=== PATIENT | male | born 1940 | race Caucasian/White ===

== ENCOUNTER → 2023-04-20 02:53 | Outpatient (CLI) | payer MEDICARE, SELFPAY ==
--- NOTE | 2023-04-20 09:20 | DI.MRI_ITS ---
Exam(s) MR LUMBAR SPINE WO EXAM: MR LUMBAR SPINE WO CLINICAL HISTORY: S/P LUMBAR SURGERY,LOW BACK PAIN,LIMB PAIN,Z98.890,M54.50,M79.609. TECHNIQUE: Multiplanar multisequence MRI of the Lumbar spine was performed. COMPARISON: Prior outside MR MRI LUMBAR SPINE WO CONTRAST from 03/06/2018 . There are no plain film s of the lumbar spine available at the time of this interpretation. FINDINGS: Again noted is similar appearing posterior artifact between the spinous processes of L3 and L4 as wel l as L4 and L5. There are no posterior fusion rods nor intra pedicular screws. There is removal of posterior osseous elements at L2 and L3 levels. Conus medullaris is at normal level. There is no evidence of conus mass nor subjacent clumping of in trathecal nerve roots to suggest arachnoiditis. The distal thecal sac appears unremarkable.There is no evidence of Tarlov intrasacral cysts nor other significant findings within the sacral canal Bones:There are no fractures nor ominous osseous lesions in the lumbar vertebral bodies and visualize d sacrum. With respect to the individual levels... T12-L1: Mild annular bulging without a dominant disc herniation or central canal stenosis. No forami nal stenosis. Facets unremarkable. L1-2: Again noted is osseous fusion across the disc space at this level. Posteriorly there is mild o sseous lipping of the posterior cortex but without significant spinal canal stenosis. Facet joints u nremarkable. There is mild bilateral foraminal stenosis at this level due to the absence of disc hei ght. Facet joints at this level appear unremarkable. L2-3: Preserved disc height. There is a Schmorl's node invagination in the central aspect of the sup erior endplate of L3, unchanged from 2018. Mild annular bulging without a distinct disc herniation. There is absence of posterior osseous eleme nts at this level. There is no central canal stenosis. There is mild bilateral foraminal stenosis w hich is mostly related to mild annular bulging into the floor of the exiting neural foramina bilatera lly as well as degenerative anterior osseous lipping of the superior processes of the bilateral facet joints. This has slightly increased when compared to 2018. L3-4: Or there is further disc height loss at this level when compared to 2018, this more prominent o n the left side of the disc space and there are also lateral left osteophytes at this level evident. Absence of posterior osseous elements noted at this level. No disc herniation or central canal sten osis.There is mild-moderate foraminal stenosis on the left side at this level related to the disc hei ght loss and some degenerative change in the facet joints. There is milder foraminal stenosis on the right side.Mild facet joint degenerative changes are evident L4-5: This level exhibits some disc space narrowing on its right side with preservation of disc heigh t on the left side. There is symmetrical mild annular bulging without a dominant disc herniation rohini dent. No central canal stenosis. No foraminal stenosis on the left side but there is foraminal sten osis on the right side due to the asymmetric disc height loss on the right side of this disc space re sulting in an element of vertical foraminal stenosis. No contributing to the foraminal stenosis on t he right side is degenerative anterior lipping of these superior articular process of the right facet joint at this level. L5-S1: This level exhibits normal disc height anteriorly with some disc space narrowing posteriorly a nd there is symmetrical posterior annular bulging but without a distinct disc herniation and central canal dimensions are within normal limits. However, there is bilateral foraminal stenosis at this le rafael with the exiting nerve roots impinged between the annular bulging in the floor of the exiting eve ral foramina bilaterally and the overlying L5 pedicles. There are only mild degenerative changes in the facet joints at this level. Soft tissues: paraspinal soft tissues appear unremarkable. IMPRESSION: 1. Compared to the prior MRI scan of February 2018 there is again noted evidence of surgery as describe d above with removal of some posterior osseous elements and placement of devices between the spinous processes of L3-4 and L4-5. 2. There is further loss of disc height at L3-4 level. There is no evidence of central spinal canal stenosis nor dominant disc herniation. However, there is increasing element of foraminal stenosis at levels as described above with some asymmetry of the exiting neural foraminal stenosis due to asymme tric disc height loss at L3-4 and L4-5 levels. DATA REPOSITORY:
== END ==
PROVIDERS: PCP Internal Medicine; Visit Provider Neurological Surgery
DX: Z98.890 Other specified postprocedural states (principal); M99.63 Osseous and subluxation stenosis of intervertebral foramina of lumbar region
CPT/HCPCS: 72148

== ENCOUNTER 2024-04-27 15:25 | Outpatient (CLI) | payer MEDICARE, SELFPAY ==
--- NOTE | 2024-04-27 06:00 | DI.RAD_ITS ---
Exam(s) XR PAIN CLINIC LUMBAR SP 2V EXAM: XR PAIN CLINIC LUMBAR SP 2V CLINICAL HISTORY: DX: Lumbar Radiculopathy TECHNIQUE: 2D and realtime digital imaging was performed. Radiologist not present. CONTRAST MATERIAL: None. COMPARISON: No exams were available for comparison FINDINGS: Fluoroscopy was provided for pain management therapy. Please refer to procedure report or details. Radiation Exposure Index: Ka,r=8.0 mGy IMPRESSION: As above. RADIATION DOSE DELIVERED:
[2024-04-27 15:39] VITALS: BP 156/54; PULSE 70; RESP 20; TEMP 36.7; O2SAT 96
[2024-04-27 16:00] VITALS: PULSE 52; RESP 15; O2SAT 84
[2024-04-27 16:02] VITALS: BP 168/63; PULSE 50; PULSE 51; RESP 9; O2SAT 100
[2024-04-27 16:10] VITALS: PULSE 50; RESP 17; O2SAT 98
--- NOTE | 2024-04-27 16:16 | PDOC.PAIN ---
Date of service: 04/27/24 Time of Service: 16:16 Pain Managment Procedure Note Procedure Note Procedure Note: PROCEDURE NOTE CAUDAL EPIDURAL STEROID INJECTION Date of Service: April 27, 2024 Patient:Junior Mariee? Provider:? Ed Short DO, MPH Junior Miller has been [facility] to [facility] for caudal epidural steroid injection.? Pre-operative diagnosis: Lumbosacral Radiculopathy, ICD-10 M54.17 Post-operative diagnosis: Same Pre-Procedure Pain: VAS= 5/10. COMMENTS: I previously evaluated him in the office. His symptoms are the same. Jermanwas interviewed and the medical record was reviewed.? There were no medical, pharmacologic, radiographic or other structural contraindications to attempting fluoroscopically guided epidural steroid injection.? Risks and expected side effects as well as potential benefit of the procedure were reviewed with Jerman, and the patient's voiced concerns were addressed.? The printed consent form was signed.? Standard time-out procedure was performed. Jerman was placed in the prone position on the fluoroscopy table and automated blood pressure cuff and pulse oximeter applied.? The skin entry point for entering/approaching the epidural space by a caudal approach through the sacral hiatus ed identified with surgical skin marking.? Following thorough chlorhexidine preparation of the skin and draping and 1% lidocaine infiltration of the skin entry point and subcutaneous tissues, a 17 gauge Touhy needle was placed under fluoroscopic guidance? into the epidural space. Needle tip placement and depth were aided and confirmed by fluoroscopy in the lateral and AP position. There was no paresthesia or return of blood or CSF through the needle. 1 cc of Omnipaque 240 was injected with clear epidural spread confirmed with fluoroscopy. An Arrow 19G radio-opaque epidural catheter was advanced into the epidural space to the L5-S1 level and 2 cc of Omnipaque 240 was injected with clear epidural spread. 80 mg of Depo-Medrol was? injected. There was no unusual discomfort expressed by Junior. The needle and catheter were then flushed with 1 cc of 1% Lidocaine and they were removed together without difficulty (49 cc of Omnipaque was wasted). Junior was observed and was without hemodynamic, neurologic, or allergic reactions.? Fluoroscopic images were digitally archived. Junior's vital signs were stable throughout the procedure and were as recorded in the docflowsheet by the nursing staff.? If given, dosages of intravenous drugs for anxiolysis and analgesia were documented in MAR. Follow up plans and appointments were discussed with Junior.? Post procedure instruction was given as documented in nursing documentation and having met discharge criteria, [facility]. ? COMMENTS: No apparent complications.? Post-procedure pain: VAS= 2/10. If the patient receives at least 50% improvement in pain and/or function for at least 3 months, this procedure can be repeated. I personally completed the entire procedure. ED SHORT DO, MPH [employer] - Subspecialty board certification in Pain Medicine [facility] [facility]
[2024-04-27] MEDS: Omnipaque 240 MG/ML 50 ML BTL IJ (16:19)
[2024-04-27] MEDS: methylPREDNISolone ACETATE 40 MG/ML VIAL IJ (16:20)
[2024-04-27] MEDS: Epidural Tray 1 EACH MC (16:21)
== END 2024-04-27 15:26 | disposition home or self-care (01) ==
LOC: PC 15:25
PROVIDERS: PCP Internal Medicine; Visit Provider Preventive Medicine Occupational Medicine
DX: M54.50 Low back pain, unspecified (principal); M54.17 Radiculopathy, lumbosacral region
CPT/HCPCS: 62323; 72100; J1010; Q9967

== ENCOUNTER 2024-09-01 11:56 | Outpatient (CLI) | payer MEDICARE, SELFPAY ==
[2024-09-01 11:21] VITALS: BP 136/65; PULSE 62; RESP 18; TEMP 36.6; O2SAT 99
[2024-09-01 12:32] VITALS: PULSE 54; RESP 15
[2024-09-01 12:36] VITALS: BP 157/67; PULSE 54; RESP 12; O2SAT 98
[2024-09-01 12:40] VITALS: PULSE 53; RESP 8; O2SAT 99
[2024-09-01 12:46] VITALS: BP 151/65; PULSE 51
--- NOTE | 2024-09-01 12:50 | PDOC.PAIN ---
Date of service: 09/01/24 Time of Service: 12:50 Pain Managment Procedure Note Procedure Note Procedure Note: PROCEDURE NOTE CAUDAL EPIDURAL STEROID INJECTION Date of Service: September 01, 2024 Patient:Junior Mariee? Provider:? Margarita Short DO, MPH Junior Miller has been referred to the [facility] for caudal epidural steroid injection.? Pre-operative diagnosis: Lumbosacral Radiculopathy, ICD-10 M54.17 Post-operative diagnosis: Same Pre-Procedure Pain: VAS= 6/10. COMMENTS: He had >3 months of >50% pain relief with his last caudal MARIA M on 04/27/24. Jermanwas interviewed and the medical record was reviewed.? There were no medical, pharmacologic, radiographic or other structural contraindications to attempting fluoroscopically guided epidural steroid injection.? Risks and expected side effects as well as potential benefit of the procedure were reviewed with Jerman, and the patient's voiced concerns were addressed.? The printed consent form was signed.? Standard time-out procedure was performed. Jerman was placed in the prone position on the fluoroscopy table and automated blood pressure cuff and pulse oximeter applied.? The skin entry point for entering/approaching the epidural space by a caudal approach through the sacral hiatus ed identified with surgical skin marking.? Following thorough chlorhexidine preparation of the skin and draping and 1% lidocaine infiltration of the skin entry point and subcutaneous tissues, a 17 gauge Touhy needle was placed under fluoroscopic guidance? into the epidural space. Needle tip placement and depth were aided and confirmed by fluoroscopy in the lateral and AP position. There was no paresthesia or return of blood or CSF through the needle. 1 cc of Omnipaque 240 was injected with clear epidural spread confirmed with fluoroscopy. An Arrow 19G radio-opaque epidural catheter was advanced into the epidural space to the L5-S1 level and 2 cc of Omnipaque 240 was injected with clear epidural spread. 80 mg of Depo-Medrol was? injected. There was no unusual discomfort expressed by Junior. The needle and catheter were then flushed with 1 cc of 1% Lidocaine and they were removed together without difficulty (49 cc of Omnipaque was wasted). Junior was observed and was without hemodynamic, neurologic, or allergic reactions.? Fluoroscopic images were digitally archived. Junior's vital signs were stable throughout the procedure and were as recorded in the docflowsheet by the nursing staff.? If given, dosages of intravenous drugs for anxiolysis and analgesia were documented in MAR. Follow up plans and appointments were discussed with Junior.? Post procedure instruction was given as documented in nursing documentation and having met discharge criteria, Junior was [facility] from the [facility]. ? COMMENTS: No apparent complications.? Post-procedure pain: VAS= 0/10. If the patient receives at least 50% improvement in pain and/or function for at least 3 months, this procedure can be repeated. I personally completed the entire procedure. MARGARITA SHORT DO, MPH [employer] - Subspecialty board certification in Pain Medicine [facility]
[2024-09-01] MEDS: Nerve Block Tray 1 EACH MC (12:52)
[2024-09-01] MEDS: Omnipaque 240 MG/ML 50 ML BTL IJ (12:52)
[2024-09-01] MEDS: methylPREDNISolone ACETATE 80 MG/ML VIAL IJ (12:52)
--- NOTE | 2024-09-01 18:00 | DI.RAD_ITS ---
Exam(s) XR PAIN CLINIC LUMBAR SP 2V EXAM: XR PAIN CLINIC LUMBAR SP 2V CLINICAL HISTORY: DX: Lumbar Radiculopathy TECHNIQUE: 2D and realtime digital imaging was performed. Radiologist not present. CONTRAST MATERIAL: None. COMPARISON: No exams were available for comparison FINDINGS: Fluoroscopy was provided for pain management therapy. Please refer to procedure report or details. Radiation Exposure Index: Ka,r=6.51 mGy IMPRESSION: As above. RADIATION DOSE DELIVERED:
== END 2024-09-01 11:57 | disposition home or self-care (01) ==
LOC: PC 11:57
PROVIDERS: PCP Internal Medicine; Visit Provider Preventive Medicine Occupational Medicine
DX: M54.50 Low back pain, unspecified (principal); M54.17 Radiculopathy, lumbosacral region
CPT/HCPCS: 62323; 72100; J1010; Q9967